=== PATIENT | male | born 1990 | race African-American/Black ===

== ENCOUNTER 2017-12-31 04:51 | Emergency (ER) | payer MEDICAID, OTHER ==
[~2017-12-31] VITALS: Ht 182.9 cm; Wt 100.0 kg
[~2017-12-31 04:51] MED LIST: AMLODIPINE
[2017-12-31] MEDS ORDERED: MAGNESIUM/ALUMINUM HYDROXIDE/SIMETHICONE 30ML UDC PO STA (06:21)
[2017-12-31] MEDS ORDERED: VISCOUS LIDOCAINE 2% 15 ML UDC PO STA (06:21)
[2017-12-31] MEDS ORDERED: DICYCLOMINE 10 MG/5 ML ORAL SYR PO STA (06:21)
[2017-12-31] MEDS ORDERED: ONDANSETRON 4MG ODT PO STA (06:21)
[2017-12-31] MEDS ORDERED: IBUPROFEN 600MG TABLET PO STA (06:21)
[2017-12-31] MEDS ORDERED: FAMOTIDINE 20MG TABLET PO ONE (06:30)
[2017-12-31 07:56] LABS: BASOPHILS % 0.7 % (0.0-2.0); EOSINOPHILS % 9.4 % (0.0-5.0); HEMATOCRIT. 43.5 % (42.0-52.0); LYMPHOCYTES % 22.7 % (20.0-50.0); MEAN CORPUSCULAR HEMOGLOBIN 29.4 pg (28.0-32.0); MEAN CORPUSCULAR VOLUME 85.5 fL (80.0-94.0); MEAN PLATELET VOLUME 10.3 fl (7.4-10.4); MONOCYTES % 9.5 % (2.0-8.0); NEUTROPHILS % 57.7 % (40.0-76.0); PLATELET 214 x1000/uL (130-400); RED BLOOD CELL COUNT 5.08 mill/uL (4.7-6.1); RED CELL DISTRIBUTION WIDTH 13.2 % (11.6-14.6)
[2017-12-31 08:00] LABS: CHLORIDE 104 mEq/L (98-107)
[2017-12-31 08:20] LABS: KETONES URINE NEGATIVE (NEGATIVE); LEUKOCYTE ESTERASE URINE NEGATIVE (NEGATIVE); NITRITE URINE NEGATIVE (NEGATIVE); OCCULT BLOOD URINE NEGATIVE (NEGATIVE); PH URINE 6.5 (4.5-8.0); PROTEIN URINE NEGATIVE (NEGATIVE); SPECIFIC GRAVITY URINE 1.014 (1.005-1.030); UROBILINOGEN URINE 0.2 E.U./dL (0.2-1.0)
[2017-12-31 08:22] LABS: CLARITY URINE CLEAR (CLEAR); COLOR URINE YELLOW (YELLOW)
[2017-12-31 09:49] VITALS: BP 121/70
== END 2017-12-31 09:53 | disposition home or self-care (01) ==
LOC: ER 04:51
DX: R07.9 Chest pain, unspecified (principal); I10 Essential (primary) hypertension
CPT/HCPCS: 36415; 71045; 80053; 81003; 85025; 93005; 99285; Q0162